=== PATIENT | female | born 1965 ===

== ENCOUNTER 2025-05-14 14:25 | Outpatient (CLI) | payer OTHER | END 2025-05-14 14:27 | disposition home or self-care (01) | LOC: SONOGRAMA 14:25 | PROVIDERS: ATTEND Pathology Anatomic Pathology & Clinical Pathology | DX: D34 Benign neoplasm of thyroid gland (principal); E07.89 Other specified disorders of thyroid; E04.2 Nontoxic multinodular goiter ==

== ENCOUNTER 2025-08-13 09:58 | Outpatient (CLI) | payer OTHER | END 2025-08-13 10:01 | disposition home or self-care (01) | LOC: SONOGRAMA 09:58 | PROVIDERS: ATTEND Pathology Anatomic Pathology & Clinical Pathology | DX: D34 Benign neoplasm of thyroid gland (principal); E07.89 Other specified disorders of thyroid; E04.2 Nontoxic multinodular goiter ==